=== PATIENT | female | born 1975 | race Caucasian/White ===

== ENCOUNTER 2020-03-14 12:20 | Outpatient (REF) | payer MEDICAID, SELFPAY ==
--- NOTE | 2020-03-14 12:25 | MM_ITS ---
EXAMINATION: MM SCREENING DIGITAL BREAST TOMOSYNTHESIS, BILATERAL CLINICAL INFORMATION: Screening. Asymptomatic. The lifetime risk of breast cancer based on the Tyrer-Cuzick Model is 10.5%. COMPARISON: Mammography: None at this time. Addendum will be made if and when old films are obtained. TECHNIQUE: Digital breast tomosynthesis is performed in both the craniocaudal and mediolateral oblique views along with computer-aided detection (CAD). Synthesized 2D images are generated from the tomosynthesis. FINDINGS: There are scattered areas of fibroglandular density (ACR BI-RADS breast composition Category b). Within the deep lateral aspect of the right breast there is a 5 x 7 mm well-circumscribed density without fatty notch present approximately 9 cm from nipple. Within the deep central aspect of the left breast seen only on craniocaudal view there is a lobular marginated density measuring approximately 9 x 5 mm in size lying approximately 8 cm from the nipple. MM/MM tomosynthesis screening BI IMPRESSION: Bilateral breast densities for which further evaluation is suggested if old films cannot be obtained to determine if these are chronic findings or not. ASSESSMENT: BI-RADS 0: Incomplete - Need Additional Imaging Evaluation RECOMMENDATION: 1. Radiology department staff will attempt to retrieve outside prior exam(s) to allow for comparison in an addendum report. 2. Otherwise, bilateral spot compression films and possible ultrasound if warranted. This patient's information was entered into a reminder system with a target due date for their next mammogram.
== END 2020-03-14 12:21 | disposition home or self-care (01) ==
LOC: HO.MAMMO 12:20
PROVIDERS: Visit Provider Registered Nurse
DX: Z12.31 Encounter for screening mammogram for malignant neoplasm of breast (principal)
CPT/HCPCS: 77063; 77067